=== PATIENT | male | born 1965 | race Caucasian/White ===

== ENCOUNTER 2024-10-23 20:02 | Emergency (ER) | payer OTHER, SELFPAY ==
[2024-10-23 20:23] VITALS: BP 142/92; PULSE 74; RESP 16; TEMP 36.7; O2SAT 98
[2024-10-23 20:28] VITALS: RESP 18
--- NOTE | 2024-10-23 20:38 | ED.GENADUL_ITS ---
Discharge Plan Disposition Patient Disposition: Home Condition: Good Discharge Details Clinical Impression: Encounter for ostomy care education, Encounter for medical assessment Primary Care Provider: Unknown,Unknown ED Provider: Edwin Palm Home Meds and New Rx's Prescriptions: No Action No Known Home Meds Discharge Instructions Instructions: How to Care for Your Ostomy, Adult Additional Instructions: At this time here pacemaker site and urostomy site show no evidence of infection or significant abnormality. You have been sent home with a few days supplies of ostomy supplies. Please use these as directed. If you notice any worsening of your symptoms, or any new symptoms such as vomiting, diarrhea, fever, chills, shortness of breath, chest pain, numbness, weakness, or fainting , please return immediately to the emergency department for reevaluation. Please follow up with your primary care provider as soon as possible for reassessment and reevaluat ion. As always, it was a pleasure participating in your medical care today. HPI General Date/Time Provider Initiated Documentation: 10/23/24 20:12 . HPI Narrative: 58-year-old male who presents from assisted for evaluation of his ostomy site. Patient has an extensive past medical history of ostomy site, previous infection, subsequent new ostomy, pacemaker. He was homeless, but states that he has just been in assisted for a small bit. He was at intake and the skilled nursing facility did not have any ostomy site bags or supplies. He was brought in out of concern that the ostomy bag may back up, and cause stomach problem. He denies any abdominal pain, chest pain, shortness of breath, fever, chills, or other complaints. No other modifying factors. Related Data Home Medications ?Medication ?Instructions ?Recorded ?Confirmed Unknown [No Known Home Meds] 10/23/24 0 10/23/24 Allergies Allergy/AdvReac Type Severity Reaction Status Date / Time latex Allergy Unknown Anaphylaxis Verified 10/23/24 20:28 General Stated Complaint: Abd Prob JOHANNE: 4 Exam Narrative Exam Narrative: 1.Const: Well-nourished, Well-developed, appearing stated age 2.Eyes: PERRL, no conjunctival injection, and symmetrical lids. 3.ENT: Atraumatic external nose and ears. Moist MM. Neck: Symmetric, trachea midline, No thyromegaly. 4.CVS: +S1/S2, Peripheral pulses 2+ and equal in all extremities. Brisk capillary refill in all extremities. Pacemaker site is clean dry and intact with no signs of redness swelling discharge drainage or tenderness. 5.RESP: Unlabored respiratory effort. Clear to auscultation bilaterally. No whe ezes rales or rhonchi 6.GI: Soft, Nontender/Nondistended, No hepatosplenomegaly. No guarding or rebound. Ostomy site is pink, no tenderness, no atypical redness. Normal stool discharge. 7.MSK: Normocephalic/Atraumatic, Extremities w/o deformity or ttp No cyanosis or clubbing, Normal movement of all extremities 8.Skin: Warm, Dry. No rashes or lesions. 9.Neuro: supply specialist II-XII grossly intact. Sensation grossly intact, no focal neurologic deficits. 10.Psych: (AAO) x3. Appropriate mood and affect Course Vital Signs Vital signs: Vital Signs Temperature 36.7 C 10/23/24 20:23 Pulse 74 10/23/24 20:23 Respiratory Rate 16 10/23/24 20:23 Blood Pressure 142/92 H 10/23/24 20:23 Pulse Oximetry 98 10/23/24 20:23 Temperature 36.7 C 10/23/24 20:23 Temperature Source Temporal Artery Scan 10/23/24 20:23 Pulse 74 10/23/24 20:23 Respiratory Rate 18 10/23/24 20:28 Blood Pressure 142/92 H 10/23/24 20:23 Blood Pressure Position Sitting 10/23/24 20:23 Pulse Oximetry 98 10/23/24 20:23 Oxygen Delivery Method Room Air 10/23/24 20:23 Oxygen Flow Rate 0 10/23/24 20:23 Pain Level 0 10/23/24 20:28 Medical Decision Making 58-year-old male who presents from assisted for evaluation of his ostomy site. Patient has an extensive past medical history of ostomy site, previous infection, subsequent new ostomy, pacemaker. He was homeless, but states that he has just been in assisted for a small bit. He was at intake and the skilled nursing facility did not have any ostomy site bags or supplies. He was brought in out of concern that the ostomy bag may back up, and cause stomach problem. He denies any abdominal pain, chest pain, shortness of breath, fever, chills, or other complaints. No other modifying factors. Exam demonstrates a well-appearing male, an appropriate feeling ostomy, and appropriate appearing ostomy, nontender nondistended abdomen, and normal pacemaker site. No signs of infection distention or other abnormality. No si gns of ostomy compromise. Patient's ostomy bag was emptied, ostomy supplies were given to the patient and skilled nursing staff. I did contact the skilled nursing discussed the case with the nurse on-call. I discussed the plan with her and she understands and agrees. Patient will be discharged back to facility. Patient shows no evidence of acute life-threatening abnormality, no signs of fever chills or infection. No signs of abdominal distention or obstruction. I have extensively reviewed the treatment plan and discharge instructions with the patient. I have addressed all patient concerns at this time. The patient was made aware of what symptoms to monitor for that would warrant a return to the emergency department. Discussed the plan with the patient, they demonstrate verbal understanding and agreement with our assessment and plan at this time. The documentation in this chart was dictated using [email or web address] dictation software. Please excuse any dictation errors. PFSH All Active Problems (Updated 10/23/24 @ 20:39 by Edwin Palm DO) Encounter for medical assessment (Acute) Encounter for ostomy care education (Acute) Social History Smoking risk assessment performed?: No
== END 2024-10-23 21:03 | disposition home or self-care (01) ==
PROVIDERS: Emergency Provider Student in an Organized Health Care Education/Training Program
DX: Z00.8 Encounter for other general examination (principal); Z93.3 Colostomy status; Z95.0 Presence of cardiac pacemaker; Z86.19 Personal history of other infectious and parasitic diseases
CPT/HCPCS: 99285 ×2